=== PATIENT | male | born 1940 | race Caucasian/White ===

== ENCOUNTER 2016-12-21 14:20 | Emergency (ER) | payer OTHER, MEDICARE ==
[2016-12-21 14:40] VITALS: BP 117/91; PULSE 87; TEMP 98.6; BMI 27.9
--- NOTE | 2016-12-21 14:43 | PDOC ---
History of Present Illness - General History Source: Patient, Family Exam Limitations: No Limitations - History of Present Illness Initial Comments: 12/21/16 15:35 The patient is a 76 year old male presenting with his , with a significant past medical history of GERD, HTN and gout, who presents to the emergency department after being sent by their PMD for a possible UTI. The patient currently complaints of back pain, frequent urination and dark urine. He describes his flank pain as mild to moderate, radiating to the right lower quadrant. He denies any modifying factors. He also reports chills associated with his chief complaint. The patient denies chest pain, shortness of breath, headache and dizziness. Denies fever, nausea, vomit, diarrhea and constipation. Denies dysuria, urgency. Allergies: None Past surgical history: Cholecystectomy Social history: No alcohol, tobacco or drug use reported PMD - Dr. Girish Preston <Riley Pacheco - Last Filed: 12/21/16 17:11> <Simba Devine - Last Filed: 12/21/16 17:27> - General Chief Complaint: Urinary Problem Stated Complaint: DARK URINE, BACK PAIN, FREQ URINATING Time Seen by Provider: 12/21/16 14:42 Past History <Riley Pacheco - Last Filed: 12/21/16 17:11> - Past Medical History GI Disorders: Yes (GERD) HTN: Yes Other medical history: GOUT - Surgical History Cholecystectomy: Yes - Psycho/Social/Smoking Cessation Hx Suicidal Ideation: No Smoking History: Never smoked Hx Alcohol Use: No Drug/Substance Use Hx: No <Simba Devine - Last Filed: 12/21/16 17:27> - Past Medical History Allergies/Adverse Reactions: Allergies Allergy/AdvReac Type Severity Reaction Status Date / Time No Known Allergies Allergy Verified 12/21/16 14:28 Home Medications: Ambulatory Orders Allopurinol 300 mg PO DAILY tablet 12/14/15 Aspirin [Aspir 81] 81 mg PO DAILY 12/14/15 Carvedilol 3.125 mg PO AM tablet 12/14/15 Carvedilol 6.25 mg PO HS tablet 12/14/15 Multivit-Min/FA/Lycopen/Lutein [Centrum Silver Tablet] 1 each PO DAILY tablet 12/14/15 [place]-3/Dha/Epa/Fish Oil [Fish Oil 1,400 Mg Softgel] 1 each PO DAILY 12/14/15 Omeprazole 20 mg PO DAILY 12/14/15 Ibuprofen [Motrin -] 600 mg PO QID PRN #28 tablet 12/21/16 Methocarbamol [Robaxin -] 750 mg PO QID PRN #30 tablet 12/21/16 Review of Systems - Review of Systems Able to Perform ROS?: Yes Comments:: 12/21/16 15:35 GENERAL/CONSTITUTIONAL: +Chills. No fever. No weakness. HEAD, EYES, EARS, NOSE AND THROAT: No change in vision. No ear pain or discharge. No sore throat. CARDIOVASCULAR: No chest pain or shortness of breath RESPIRATORY: No cough, wheezing, or hemoptysis. GASTROINTESTINAL: No nausea, vomiting, diarrhea or constipation. GENITOURINARY: +Right flank pain, frequency and dark urine. MUSCULOSKELETAL: No joint or muscle swelling or pain. No neck or back pain. SKIN: No rash NEUROLOGIC: No headache, vertigo, loss of consciousness, or change in strength/ sensation. ENDOCRINE: No increased thirst. No abnormal weight change HEMATOLOGIC/LYMPHATIC: No anemia, easy bleeding, or history of blood clots. ALLERGIC/IMMUNOLOGIC: No hives or skin allergy. <Riley Pacheco - Last Filed: 12/21/16 17:11> *Physical Exam - Vital Signs Last Vital Signs Temp Pulse Resp BP Pulse Ox 98.6 F 87 18 117/91 99 12/21/16 14:20 12/21/16 14:20 12/21/16 14:20 12/21/16 14:20 12/21/16 14:20 - Physical Exam Comments: 12/21/16 15:35 GENERAL: Awake, alert, and fully oriented, in no acute distress HEAD: No signs of trauma, normocephalic, atraumatic EYES: PERRLA, EOMI, sclera anicteric, conjunctiva clear ENT: Auricles normal inspection, hearing grossly normal, nares patent, oropharynx clear without exudates. Moist mucosa NECK: Normal ROM, supple, no lymphadenopathy, JVD, or masses LUNGS: No distress, speaks full sentences, clear to auscultation bilaterally HEART: Regular rate and rhythm, normal S1 and S2, no murmurs, rubs or gallops, peripheral pulses normal and equal bilaterally. ABDOMEN: Soft, nontender, Mcburneys negative, normoactive bowel sounds. No guarding, no rebound. No masses EXTREMITIES: Normal inspection, Normal range of motion, no edema. No clubbing or cyanosis. NEUROLOGICAL: Cranial nerves II through XII grossly intact. Normal speech, normal gait, no focal sensorimotor deficits SKIN: Warm, Dry, normal turgor, no rashes or lesions noted. <Riley Pacheco - Last Filed: 12/21/16 17:11> - Vital Signs Last Vital Signs Temp Pulse Resp BP Pulse Ox 98.6 F 87 18 117/91 99 12/21/16 14:20 12/21/16 14:20 12/21/16 14:20 12/21/16 14:20 12/21/16 14:20 <Simba Devine - Last Filed: 12/21/16 17:27> ED Treatment Course - LABORATORY CBC & Chemistry Diagram: 12/21/16 15:18 12/21/16 15:18 - ADDITIONAL ORDERS Additional order review: Laboratory Results 12/21/16 14:40 Urine Color Yellow Urine Appearance Clear Urine pH 5.5 Ur Specific [place] 1.025 Urine Protein 2+ H D Urine Glucose (UA) Negative Urine Ketones Trace Urine Blood 3+ H Urine Nitrite Negative Urine Bilirubin 1+ H Urine Urobilinogen 1.0 e.u/dl Ur Leukocyte Esterase Negative - RADIOLOGY Radiograph Interpretation: 12/21/16 17:11 CT abdomen and pelvis without contrast Reviewed by; Dr. Keenan Pardo Impression: No CT evidence of urolithiasis or hydroureteronephrosis. Bowel nonrotation is noted. Prominent diffuse hepatic steatosis. Minimal to mild splenomegaly s/p cholecystectomy. Sigmoid diverticulosis without evidence of acute diverticulitis. Extensive atherosclerotic vascular calcifications. Small umbilical hernia containing fat only. Bilateral inguinal hernias containing fat only. Marked bilateral L4-L5 degenerative facet arthropathy. Grade 1 L4-L5 degenerative spondylolisthesis <Riley Pacheco - Last Filed: 12/21/16 17:11> - LABORATORY CBC & Chemistry Diagram: 12/21/16 15:18 12/21/16 15:18 <Simba Devine - Last Filed: 12/21/16 17:27> *DC/Admit/Observation/Transfer - Attestations Scribe Attestion: 12/21/16 15:35 Documentation prepared by Riley Pacheco, acting as certified medical asst for Simba Devine MD <Riley Pacheco - Last Filed: 12/21/16 17:11> - Discharge Dispostion Admit: No <Simba Devine - Last Filed: 12/21/16 17:27> Diagnosis at time of Disposition: Degeneration of intervertebral disc, Increased frequency of urination - Discharge Dispostion Disposition: HOME Condition at time of disposition: Stable - Prescriptions Prescriptions: Ibuprofen [Motrin -] 600 mg PO QID PRN #28 tablet PRN Reason: Pain Methocarbamol [Robaxin -] 750 mg PO QID PRN #30 tablet PRN Reason: Back Pain - Patient Instructions Printed Discharge Instructions: Degenerative Disc Disease
[2016-12-21 15:03] LABS: PH,URINE 5.5 (4.5-8); URINE APPEARANCE Clear; URINE BILIRUBIN 1+ (NEGATIVE); URINE GLUCOSE (UA) Negative (NEGATIVE); URINE KETONE Trace (NEGATIVE); URINE LEUK ESTERASE Negative (NEGATIVE); URINE NITRITE Negative (NEGATIVE); URINE UROBILINOGEN 1.0 E.U/dl (0.2-1.0)
[2016-12-21 15:06] LABS: URINE BLOOD 3+ (NEGATIVE); URINE COLOR YELLOW; URINE PROTEIN 2+ (NEGATIVE)
[2016-12-21 15:40] LABS: BASOPHIL 0.7 % (0-2.0); EOSINOPHIL 0.9 % (0-4.5); MCH 31.1 pg (25.7-33.7); MCHC 32.2 g/dl (32.0-35.9); MEAN CELL VOLUME 96.7 fl (80-96); MEAN PLT VOLUME 8.8 fl (7.5-11.1); NEUTROPHILS 59.8 % (42.8-82.8); PLATELET COUNT 186 K/MM3 (134-434); RDW 12.8 % (11.9-15.9)
[2016-12-21 15:48] LABS: ALBUMIN 3.6 g/dl (3.5-5.0); ALK PHOS 58 U/L (32-92); ANION GAP 12 (8-16); BILIRUBIN,TOTAL 0.8 mg/dl (0.2-1.0); CALCIUM 9.1 mg/dl (8.4-10.2); CO2 26 mmol/L (22-28); CREATININE 1.1 mg/dl (0.6-1.3); GLUCOSE,RANDOM 115 mg/dl (74-106); SGOT/AST 25 U/L (10-42); SGPT/ALT 30 U/L (10-40); TOT PROT 7.4 g/dl (6.4-8.3)
[2016-12-21 16:26] LABS: URINE BACTERIA 1+ /hpf (NEGATIVE); URINE HYALINE CAST 1+ /lpf; URINE MUCUS 2+
== END 2016-12-21 17:34 | disposition home or self-care (01) ==
LOC: FER 14:20
DX: M51.36 Other intervertebral disc degeneration, lumbar region (principal); R35.0 Frequency of micturition; I10 Essential (primary) hypertension; K21.9 Gastro-esophageal reflux disease without esophagitis
CPT/HCPCS: 36415; 74176-TC; 80053; 81003; 81015; 85025; 87086; 99284-25

== ENCOUNTER 2018-03-16 11:54 | Emergency (ER) | payer OTHER, MEDICARE ==
[2018-03-16 11:59] VITALS: TEMP 98.9; BMI 28.3
[2018-03-16] MEDS ORDERED: SODIUM CHLORIDE 0.9% 1000 ML INFUS.BAG IV ONE (12:08)
[2018-03-16] MEDS ORDERED: KETOROLAC TROMETHAMINE 15 MG/ML VIAL IVPUSH ONE (12:09)
[2018-03-16] MEDS ORDERED: KETOROLAC TROMETHAMINE 30 MG/1 ML VIAL ONE (12:27)
[2018-03-16] MEDS ORDERED: KETOROLAC TROMETHAMINE 15 MG/ML VIAL ONE (12:32)
[2018-03-16 12:41] LABS: PH,URINE 5.5 (4.5-8); URINE APPEARANCE Clear; URINE BILIRUBIN Negative (NEGATIVE); URINE GLUCOSE (UA) Negative (NEGATIVE); URINE KETONE Negative (NEGATIVE); URINE LEUK ESTERASE Negative (NEGATIVE); URINE NITRITE Negative (NEGATIVE); URINE UROBILINOGEN 0.2 (0.2-1.0)
--- NOTE | 2018-03-16 12:42 | PDOC ---
History of Present Illness - General Chief Complaint: Pain Stated Complaint: RIGHT FLANK PAIN Time Seen by Provider: 03/16/18 12:07 History Source: Patient Exam Limitations: No Limitations - History of Present Illness Initial Comments: 03/16/18 13:21 77-year-old male with a history of previous kidney stones and prior cholecystectomy here today complaining of right lower quadrant and right flank pain. Patient states his symptoms started 4 days ago was intermittent initially but has been constant the last 24 hours. He describes nausea but no vomiting denies fevers or chills no urinary complaints feels similar to his prior kidney stones no moderating factors does not currently have a urologist PCP is Dr. gale Past History - Past Medical History Allergies/Adverse Reactions: Allergies Allergy/AdvReac Type Severity Reaction Status Date / Time No Known Allergies Allergy Verified 03/16/18 12:01 Home Medications: Ambulatory Orders Allopurinol 300 mg PO DAILY tablet 12/14/15 Aspirin [Aspir 81] 81 mg PO DAILY 12/14/15 Carvedilol 6.25 mg PO BID tablet 12/14/15 Multivit-Min/FA/Lycopen/Lutein [Centrum Silver Tablet] 1 each PO DAILY tablet 12/14/15 [place]-3/Dha/Epa/Fish Oil [Fish Oil 1,400 Mg Softgel] 1 each PO DAILY 12/14/15 Acetaminophen [Tylenol -] 2 tab PO ASDIR 03/16/18 Amoxicillin/Potassium Clav [Augmentin 875-125 Tablet] 1 each PO BID 03/16/18 Glucosamine/Chondr Mccormick A Sod [Osteo Bi-Flex Caplet] 1 each PO DAILY 03/16/18 Ibuprofen 600 mg PO TID PRN #90 tablet MDD 3 03/16/18 Omeprazole 20 mg PO DAILY 03/16/18 COPD: No GI Disorders: Yes (GERD) Disorders: Yes (renal stone) HTN: Yes - Surgical History Cholecystectomy: Yes - Suicide/Smoking/Psychosocial Hx Smoking History: Never smoked Hx Alcohol Use: No Drug/Substance Use Hx: No Substance Use Type: None Review of Systems - Review of Systems Constitutional: No: Chills, Diaphoresis HEENTM: No: Eye Pain Respiratory: No: Cough Cardiac (ROS): No: Chest Pain : Yes: Flank Pain. No: Burning, Dysuria Musculoskeletal: Yes: Back Pain All Other Systems: Reviewed and Negative *Physical Exam - Vital Signs Last Vital Signs Temp Pulse Resp BP Pulse Ox 98.9 F 89 18 169/108 98 03/16/18 11:54 03/16/18 11:54 03/16/18 11:54 03/16/18 11:54 03/16/18 11:54 - Physical Exam General Appearance: No: Apparent Distress HEENT: negative: Normal ENT Inspection Respiratory/Chest: positive: Lungs Clear, Normal Breath Sounds Cardiovascular: positive: Regular Rhythm, Regular Rate, S1, S2 Gastrointestinal/Abdominal: positive: Normal Bowel Sounds, Flat, Soft. negative : Tender Musculoskeletal: positive: Normal Inspection. negative: CVA Tenderness Extremity: positive: Normal Capillary Refill Integumentary: positive: Normal Color, Dry, Warm ED Treatment Course - LABORATORY CBC & Chemistry Diagram: 03/16/18 12:23 03/16/18 12:23 - RADIOLOGY Radiology Studies Ordered: Category Date Time Status SPIRAL- RENAL-STONE CT [CT] Stat CT Scan 03/16/18 12:08 Taken - Medications Given in the ED: ED Medications Discontinued Medications Generic Name Dose Route Start Last Admin Trade Name Freq PRN Reason Stop Dose Admin Sodium Chloride 1,000 ml 03/16/18 12:08 03/16/18 12:23 Normal Saline - IV 03/16/18 12:09 1,000 ml ONCE ONE Administration Medical Decision Making - Medical Decision Making 03/16/18 12:42 differential diagnosis pyelonephritis, renal colic, uti, appendicitis. plan ct a /p labs ua. 03/16/18 13:53 Patient states he is feeling improved following the Toradol. CAT scan is negative for stone however UA is positive for blood. Therefore it's possible patient passed a renal stone. CT is noted to have a 5 x 5 x 2 cm right sided flank hernia which could explain the patient's pain he does report some positional changes and feels that the pain is worse when he lies flat discussed with a general surgeon on-call Dr. gagnon who states the patient may follow up as an outpatient. No current signs to suggest bowel entrapment no nausea no vomiting no fevers chills patient is still having normal bowel movements. Given referral for Dr. Woods although the patient prefers to see for general surgery and Dr. Morales for urology *DC/Admit/Observation/Transfer Diagnosis at time of Disposition: Flank hernia - Discharge Dispostion Disposition: HOME Condition at time of disposition: Improved - Prescriptions Prescriptions: Ibuprofen 600 mg PO TID PRN #90 tablet MDD 3 PRN Reason: Pain - Referrals Referrals: Yair Woods MD [Staff Physician] - Hua Melendez MD [Staff Physician] - - Patient Instructions Printed Discharge Instructions: Abdominal Hernia Additional Instructions: He should follow up with a surgeon regarding her flank hernia. Call Dr. Lani leo to schedule an appointment. Return for any persistent vomiting worsening pain fever or any concerns. For recurrent pain you can take ibuprofen 600 mg every 8 hours take with food. She also follow-up with the urologist call to schedule see referral information for - Post Discharge Activity
[2018-03-16 12:43] LABS: URINE COLOR AMBER; URINE PROTEIN 3+ (NEGATIVE)
[2018-03-16 12:45] LABS: BASO % 0.7 % (0-2.0); EOS % 2.8 % (0-4.5); HEMATOCRIT 47.7 % (35.4-49); HEMOGLOBIN 16.4 GM/dl (11.7-16.9); LYMPH % 35.3 % (8-40); MCH 32.8 pg (25.7-33.7); MCHC 34.3 g/dl (32.0-35.9); MEAN CELL VOLUME 95.6 fl (80-96); MEAN PLT VOLUME 8.7 fl (7.5-11.1); MONO % 8.1 % (3.8-10.2); NEUT % 53.1 % (42.8-82.8); PLATELET COUNT 207 K/MM3 (134-434); RBC 4.99 M/mm3 (4.00-5.60); RDW 13.1 % (11.9-15.9); WHITE BLOOD COUNT 6.8 K/mm3 (4.0-10.8)
[2018-03-16 13:10] LABS: BLOOD UREA NITROGEN 13 mg/dl (7-18); CREATININE 0.9 mg/dl (0.6-1.3); GLUCOSE,RANDOM 129 mg/dl (74-106)
[2018-03-16 13:11] LABS: ALBUMIN 4.1 g/dl (3.5-5.0); ALK PHOS 66 U/L (32-92); ANION GAP 6 (8-16); BILIRUBIN,TOTAL 0.8 mg/dl (0.2-1.0); CALCIUM 9.3 mg/dl (8.4-10.2); CHLORIDE 102 mmol/L (98-107); CO2 26 mmol/L (22-28); SGOT/AST 42 U/L (10-42); SGPT/ALT 41 U/L (10-40); SODIUM 134 mmol/L (136-145)
[2018-03-16 13:26] LABS: EPI CELLS RARE /HPF; URINE MUCUS FEW; URINE WBC 0-3 (0-2)
[2018-03-16 14:09] VITALS: BP 160/90; PULSE 80
== END 2018-03-16 14:00 | disposition home or self-care (01) ==
LOC: FER 11:54
PROC: 3E0337Z Introduction of Electrolytic and Water Balance Substance into Peripheral Vein, Percutaneous Approach (ICD-10-PCS; principal; 2018-03-16)
PROC: 3E0333Z Introduction of Anti-inflammatory into Peripheral Vein, Percutaneous Approach (ICD-10-PCS; 2018-03-16)
DX: K46.9 Unspecified abdominal hernia without obstruction or gangrene (principal); I10 Essential (primary) hypertension; K21.9 Gastro-esophageal reflux disease without esophagitis
CPT/HCPCS: 36415; 74176; 80053; 81003; 81015; 85025; 96374; 99282-25; J7030